=== PATIENT | male | born 1960 ===

== ENCOUNTER 2020-10-24 07:30 | Observation (INO) ==
[~2020-10-24 07:30] MED LIST: Buffered Lidocaine 1% SYRIN 1 ml INTRADERM ONE; Dexamethasone IV 4 MG/ML VIAL 1 ml VIAL IV SLOW PU ONE; Famotidine IV 10 MG/ML 2 ml VIAL (20 mg) IV ONE; Lactated Ringers 1000 ml BAG 1,000 ML IV SCH
[2020-10-24] MEDS ORDERED: Dexamethasone IV 4 MG/ML VIAL 1 ml VIAL ONE ×2 (08:02→08:47)
[2020-10-24] MEDS ORDERED: ceFAZolin 2 GM in NS PREMIX 2 GM/100 ML BAG IVPB ONE (08:03)
[2020-10-24] MEDS ORDERED: Famotidine IV 10 MG/ML 2 ml VIAL (20 mg) ONE (08:03)
[2020-10-24] MEDS ORDERED: Buffered Lidocaine 1% SYRIN 1 ml INTRADERM ONE (08:03)
[2020-10-24 08:14] LABS: Mean Platelet Volume 10.3 fL (7.4-10.4); Platelet Count 112 10^3/uL (150-450)
[2020-10-24] MEDS ORDERED: Rocuronium 50 mg VIAL 10 mg/ml 5 ml VIAL (50 mg) ONE ×2 (08:47→09:57)
[2020-10-24] MEDS ORDERED: Acetaminophen IV 1 GM/100ML 100 ML IV ONE (08:47)
[2020-10-24] MEDS ORDERED: fentaNYL 100 mcg/2 ml 50 MCG/ML VIAL ONE ×3 (08:47→11:54)
[2020-10-24] MEDS ORDERED: Ondansetron 4 mg VIAL 2 MG/ML 2 ml VIAL ONE (08:47)
[2020-10-24] MEDS ORDERED: Midazolam 2 mg/2 ml VIAL 1 mg/ml 2 ml VIAL (2 mg) ONE (08:47)
[2020-10-24] MEDS ORDERED: Lidocaine 2% PF 5 ML VIAL ONE (08:47)
[2020-10-24] MEDS ORDERED: Propofol 10 MG/ML 20 ML BTL ONE (08:47)
[2020-10-24] MEDS ORDERED: Prochlorperazine 5 mg/ml 2 ml VIAL (10 mg) IV PRN (08:50)
[2020-10-24] MEDS ORDERED: Morphine 4 MG/ML VIAL (1 ml) IV PRN (08:50)
[2020-10-24] MEDS ORDERED: Naloxone 0.4 mg VIAL 0.4 mg/ml 1 ml VIAL IV PRN (08:50)
[2020-10-24] MEDS ORDERED: Phenylephrine 40 mcg/mL 10mL (400mcg) SYRINGE ONE ×2 (09:45→11:16)
[2020-10-24] MEDS ORDERED: HYDROmorphone 1 MG/1 ML SYRINGE ONE (09:51)
[2020-10-24] MEDS ORDERED: Ropivacaine 5 MG/ML 20 ML VIAL 0.5% (100 MG) ONE (10:01)
[2020-10-24] MEDS ORDERED: Glycopyrrolate IV 0.2 MG/ML 1 ML VIAL ONE (10:37)
[2020-10-24] MEDS ORDERED: Lactulose 30 ml UDC PO PRN (11:15)
[2020-10-24] MEDS ORDERED: diPHENhydraMINE IV 50 MG/ML 1 ml VIAL (BENADRYL) IV PRN (11:15)
[2020-10-24] MEDS ORDERED: Ondansetron 4 mg VIAL 2 MG/ML 2 ml VIAL IV PRN (11:15)
[2020-10-24] MEDS ORDERED: Ondansetron ODT 4 mg TAB 4 MG TAB PO PRN (11:15)
[2020-10-24] MEDS ORDERED: Magnesium Hydroxide LIQ 30 ML UDC PO PRN (11:15)
[2020-10-24] MEDS ORDERED: Morphine 2 MG/ML SYRINGE IV PRN (11:15)
[2020-10-24] MEDS ORDERED: diPHENhydraMINE 25 mg TAB PO PRN (11:15)
[2020-10-24] MEDS: fentaNYL 100 mcg/2 ml 50 MCG/ML VIAL IV PRN ×4 (11:38→12:14)
[2020-10-24] MEDS ORDERED: Lactated Ringers 1000 ml BAG 1,000 ML IV SCH (12:00)
[2020-10-24] MEDS ORDERED: Morphine 4 MG/ML VIAL (1 ml) ONE (12:23)
[2020-10-24] MEDS: ceFAZolin 1 GM ADVAN 1 GM in NS 0.9% 50 ML 50 ML IVPB SCH (16:36)
[2020-10-24] MEDS: Magnesium Hydroxide LIQ 30 ML UDC PO SCH (21:05)
[2020-10-25] MEDS: ceFAZolin 1 GM ADVAN 1 GM in NS 0.9% 50 ML 50 ML IVPB SCH ×2 (00:57→09:40)
[2020-10-25 05:54] LABS: Hematocrit 31 % (42-52); Hemoglobin 10.5 g/dL (14.0-18.0); Mean Platelet Volume 10.4 fL (7.4-10.4); Platelet Count 87 10^3/uL (150-450)
[2020-10-25 06:10] LABS: Calcium 8.3 mg/dL (8.6-10.3); EGFR African American 107.6 (>60); EGFR Non-African American 88.9 (>60); Potassium 4.1 mmol/L (3.5-5.0)
[2020-10-25] MEDS ORDERED: Vitamin THERAPEUTIC TAB PO SCH (09:00)
[2020-10-25] MEDS: Magnesium Hydroxide LIQ 30 ML UDC PO SCH (09:34)
[2020-10-25 10:37] VITALS: BP 131/73
== END 2020-10-25 13:20 | disposition home or self-care (01) ==
LOC: OR 07:30 → SSU 07:30
PROVIDERS: ADMIT Orthopaedic Surgery Adult Reconstructive Orthopaedic Surgery; ATTEND Orthopaedic Surgery Adult Reconstructive Orthopaedic Surgery